=== PATIENT | male | born 1930 | race Caucasian/White ===

== ENCOUNTER 2017-04-26 07:40 | Emergency (ER) | payer MEDICARE, BC ==
[~2017-04-26 07:40] MED LIST: AMOXICILLIN500 M1 PO; ASPIR 8181 MG PO; ASPIRIN325 MG; ASPIRIN81 M1 PO; CO Q-10100 M2 PO; CO Q-10100 MG; CO Q-10100 MG PO; CO Q-1050 MG; CRESTOR10 M1 PO; CRESTOR10 MG; CRESTOR10 MG PO; DILTIAZEM ER120 MG; LEVAQUIN750 MG PO; LEVITRA20 M1 PO; LEVOBUNOLOL HCL15 ML; LISINOPRIL-HCT1 EAC1 PO; LISINOPRIL-HCT1 EACH PO; LISINOPRIL-HCTZ PO; LISINOPRIL10 MG; LUMIGAN2.5 M2 OP; LUMIGAN2.5 ML OP; METOPROLOL TART25 MG PO; MUCINEX600 MG PO; MULTIVITAMIN1 CAP PO; MULTIVITAMIN1 TAB; MULTIVITAMINS1 EAC6 PO; NITROGLYCERIN0.4 MG SL; NITROSTAT0.4 MG/TAB SL; NORCO 5/3251 TAB PO; NORVASC2.5 M1 PO; PRINIVIL20 M1 PO; PRINZIDE 20/12.1 TAB; ROSUVASTATIN CA10 MG PO; TOPROL XL25 MG PO; TOPROL XL50 M1 PO; TYLENOL325 M2 PO; VIAGRA25 MG PO; ZADITOR5 M2 OP
[2017-04-26] MEDS ORDERED: [UNRECOGNIZED DRUG - OTHER] (08:23)
[2017-04-26] MEDS ORDERED: MECLIZINE HCL12.5 M3 PO (08:35)
== END 2017-04-26 08:45 ==
LOC: EDMED 07:40
DX: H81.12 Benign paroxysmal vertigo, left ear (principal); I10 Essential (primary) hypertension; E78.5 Hyperlipidemia, unspecified; Z90.89 Acquired absence of other organs; Z90.49 Acquired absence of other specified parts of digestive tract; Z79.82 Long term (current) use of aspirin; Z79.899 Other long term (current) drug therapy